=== PATIENT | female | born 1980 | race Two or more races ===

== ENCOUNTER 2018-02-15 00:16 | Emergency (ER) | payer MEDICAID ==
[~2018-02-15] VITALS: Ht 152.4 cm; Wt 89.4 kg
[2018-02-15 04:09] VITALS: BP 107/56
== END 2018-02-15 05:17 | disposition left against medical advice (07) ==
LOC: ER 00:16
DX: R51 Headache (principal); Z53.21 Procedure and treatment not carried out due to patient leaving prior to being seen by health care provider